=== PATIENT | female | born 1945 | race Asian ===

== ENCOUNTER → 2023-05-29 09:02 | Outpatient (REF) | payer MEDICARE, OTHER, SELFPAY | LOC: HWRAD 09:02 | PROVIDERS: ATTENDING PHYSICIAN Nurse Practitioner | DX: K43.9 Ventral hernia without obstruction or gangrene (principal) | CPT/HCPCS: 76705 ==

== ENCOUNTER → 2023-06-11 12:55 | Outpatient (REF) | payer MEDICARE, OTHER, SELFPAY | LOC: HWRAD 12:55 | PROVIDERS: ATTENDING PHYSICIAN Nurse Practitioner | DX: K43.9 Ventral hernia without obstruction or gangrene (principal) | CPT/HCPCS: 74160; Q9967 ==

== ENCOUNTER → 2025-04-20 11:41 | Outpatient (REF) | payer MEDICARE, OTHER, SELFPAY | LOC: HWRAD 11:41 | DX: R10.31 Right lower quadrant pain (principal) | CPT/HCPCS: 74176 ==